=== PATIENT | female | born 1980 ===

== ENCOUNTER 2021-05-10 08:50 | Emergency (ER) | payer OTHER ==
[2021-05-10 09:16] VITALS: BP 191/110
[2021-05-10] MEDS ORDERED: KETOROLAC 30 MG/1 ML INJ IM ONE (10:53)
[2021-05-10] MEDS ORDERED: dexAMETHasone 20 MG/5 ML VIAL IM ONE (10:53)
[2021-05-10] MEDS ORDERED: ACETAMINOPHEN 500 MG TAB PO ONE (10:53)
--- NOTE | 2021-05-10 11:04 | Emergency Department Report ---
ED Back Pain/Injury HPI - General Chief Complaint: Back Pain/Injury Stated Complaint: BACK PAIN Source: patient Limitations: No Limitations - History of Present Illness Initial Comments: Patient is a 41-year-old -[place] female with a history of morbid obesity and hypertension who presents to the ED with complaint of acute onset persistent severe nontraumatic right-sided mid posterior thoracic pain for the last 1 week, worse in the last 2 days. 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 Patient denies chest pain, fall, traumatic injury, dizziness, syncope, nausea and vomiting, fever, chills, dysuria, urinary frequency and urgency, vaginal discharge, vaginal bleeding, dysuria, abdominal pain, numbness and tingling or weakness of upper and lower extremities bilaterally, headache or neck pain. MD Complaint: back pain (right posterior upper thoracic pain) -: Sudden, week(s) (1) Similar Symptoms Previously: Yes Place: home Radiation: none Severity: severe Severity scale (0 -10): 8 Quality: sharp, aching Consistency: constant Improves With: none Worsens With: movement, walking Context: while lifting, turning/twisting Associated Symptoms: denies other symptoms. denies: confusion, chest pain, numbness, difficulty walking, cough, difficulty urinating, diaphoresis, incontinence, fever/chills, headaches, abdominal pain, loss of appetite, malaise, nausea/vomiting, rash, seizure, shortness of breath, syncope Treatments Prior to Arrival: NSAIDS - Related Data Previous Rx's Medication Instructions Recorded Last Taken Type Baclofen 20 mg PO Q8H PRN #24 tablet 05/10/21 Unknown Rx Ibuprofen [Motrin] 800 mg PO Q8HR PRN #30 tablet 05/10/21 Unknown Rx traMADoL [Ultram] 50 mg PO Q6HR PRN #12 tablet 05/10/21 Unknown Rx Allergies Allergy/AdvReac Type Severity Reaction Status Date / Time No Known Allergies Allergy Unverified 05/10/21 09:11 ED Review of Systems ROS: Stated complaint: BACK PAIN Other details as noted in HPI Constitutional: denies: chills, fever Eyes: denies: eye pain, eye discharge, vision change ENT: denies: ear pain, throat pain Respiratory: denies: cough, shortness of breath, wheezing Cardiovascular: denies: chest pain, palpitations Endocrine: no symptoms reported Gastrointestinal: denies: abdominal pain, nausea, diarrhea Genitourinary: denies: urgency, dysuria, discharge Musculoskeletal: back pain (painful right sided mid-posterior thoracic pain). denies: joint swelling, arthralgia Skin: denies: rash, lesions Neurological: denies: headache, weakness, paresthesias Psychiatric: denies: anxiety, depression Hematological/Lymphatic: denies: easy bleeding, easy bruising ED Past Medical Hx - Past Medical History Hx Hypertension: Yes - Surgical History Past Surgical History?: No - Social History Smoking Status: Never Smoker Substance Use Type: None - Medications Home Medications: Home Medications Medication Instructions Recorded Confirmed Last Taken Type Baclofen 20 mg PO Q8H PRN #24 tablet 05/10/21 Unknown Rx Ibuprofen [Motrin] 800 mg PO Q8HR PRN #30 tablet 05/10/21 Unknown Rx traMADoL [Ultram] 50 mg PO Q6HR PRN #12 tablet 05/10/21 Unknown Rx ED Physical Exam - General Limitations: No Limitations General appearance: alert, in no apparent distress - Head Head exam: Present: atraumatic, normocephalic, normal inspection - Eye Eye exam: Present: normal appearance, PERRL, EOMI Pupils: Present: normal accommodation - ENT ENT exam: Present: normal exam, normal orophraynx, mucous membranes moist, TM's normal bilaterally, normal external ear exam - Neck Neck exam: Present: normal inspection, full ROM - Respiratory Respiratory exam: Present: normal lung sounds bilaterally. Absent: respiratory distress, wheezes, rales, rhonchi, stridor, chest wall tenderness, accessory muscle use, decreased breath sounds, prolonged expiratory - Cardiovascular Cardiovascular Exam: Present: normal rhythm, tachycardia, normal heart sounds. Absent: systolic murmur, diastolic murmur, rubs, gallop - GI/Abdominal GI/Abdominal exam: Present: soft, normal bowel sounds. Absent: tenderness, guarding, hyperactive bowel sounds, hypoactive bowel sounds, organomegaly - Extremities Exam Extremities exam: Present: normal inspection, full ROM, normal capillary refill. Absent: tenderness - Back Exam Back exam: Present: normal inspection, full ROM, tenderness (Palpable right sided mid posterior thoracic paraspinal musculoskeletal tenderness), muscle spasm, paraspinal tenderness. Absent: CVA tenderness (R), CVA tenderness (L), vertebral tenderness, rash noted - Neurological Exam Neurological exam: Present: alert, oriented X3, CN II-XII intact, normal gait, reflexes normal - Psychiatric Psychiatric exam: Present: normal affect, normal mood - Skin Skin exam: Present: warm, dry, intact, normal color. Absent: rash ED Course Vital Signs 05/10/21 09:11 Temperature 97.7 F Pulse Rate 100 H Respiratory 18 Rate Blood Pressure 191/110 O2 Sat by Pulse 96 Oximetry ED Medical Decision Making - Medical Decision Making This is a 41-year-old -[place] female with a history of morbid obesity and hypertension who presents to the ED with complaint of acute onset persistent severe nontraumatic right-sided mid posterior thoracic pain for the last 1 week, worse in the last 2 days. 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 In the ED, patient is alert and oriented x3 and is not in any distress. Physical exam reveals reproducible palpable mid posterior thoracic paraspinal musculoskeletal tenderness. Patient was treated for pain in the ED and on reevaluation, patient pain is well controlled medications. Patient is hemodynamically stable. Patient was discharged home on pain medications and muscle relaxants and advised to follow- up with her primary care physician in 5 to 7 days for reevaluation. Patient is advised return to the ED immediately if symptoms get worse. - Differential Diagnosis Muscle spasm; muscle strain; paraspinal muscle strain; back pain Critical care attestation.: If time is entered above; I have spent that time in minutes in the direct care of this critically ill patient, excluding procedure time. ED Disposition Clinical Impression: Spasm of thoracic back muscle, Strain of muscle and tendon of back wall of thorax, initial encounter Disposition: TO HOME OR SELFCARE Is pt being admited?: No Does the pt Need Aspirin: No Condition: Stable Instructions: Muscle Cramps and Spasms, [id number], Muscle Strain, [id number], Back Injury Prevention, [id number] Additional Instructions: Your symptoms are likely due to muscle spasm and muscle strain of your posterior mid thoracic paraspinal musculoskeletal tissues. Therefore take medications with food, drink plenty of fluids and follow-up with your primary care physician in 7 to 10 days for reevaluation. Return to the ED immediately if symptoms get worse. Prescriptions: Baclofen 20 mg PO Q8H PRN #24 tablet PRN Reason: Muscle Spasm Ibuprofen [Motrin] 800 mg PO Q8HR PRN #30 tablet PRN Reason: Pain , Severe (7-10) traMADoL [Ultram] 50 mg PO Q6HR PRN #12 tablet PRN Reason: Pain Referrals: [facility] [Provider Group] - 7-10 days Forms: Work/School Release Form(ED) Time of Disposition: 11:05 Print Language: LATVIAN
== END 2021-05-10 11:59 | disposition home or self-care (01) ==
LOC: ED 08:50
DX: S29.012A Strain of muscle and tendon of back wall of thorax, initial encounter (principal); M62.830 Muscle spasm of back; I10 Essential (primary) hypertension; Z79.1 Long term (current) use of non-steroidal anti-inflammatories (NSAID); Z79.899 Other long term (current) drug therapy; X50.9XXA Other and unspecified overexertion or strenuous movements or postures, initial encounter; Y93.89 Activity, other specified; Y92.89 Other specified places as the place of occurrence of the external cause; Y99.8 Other external cause status
CPT/HCPCS: 96372; 99282; J1100; J1885